=== PATIENT | female | born 1980 | race Caucasian/White ===

== ENCOUNTER 2016-05-15 11:28 | Emergency (ER) | payer OTHER ==
[~2016-05-15] VITALS: Ht 165.1 cm; Wt 65.8 kg
[2016-05-15] MEDS ORDERED: DULO30CA48 (11:55)
--- NOTE | 2016-05-15 12:36 | Diagnostic Imaging Report ---
PA and lateral views of the chest Indication: Left chest pain Findings: The lungs are clear. The heart size is normal. There is no effusion or pneumothorax The mediastinum and esau appear unremarkable. Impression: Unremarkable study. Dictated by: Dictated on workstation # [id number]
--- NOTE | 2016-05-15 12:55 | ED Chest Pain ---
General Chief Complaint: Chest Wall/Rib Pain Stated Complaint: LEFT RIB/CHEST PAIN Nursing Triage Note: PT CO OF L RIB PAIN SUDDEN ONSET Nursing Sepsis Screen: No Definite Risk History of Present Illness Time seen by provider: 12:55 Initial Comments Patient presents for acute exacerbation of left rib pain, she reports this happens on a regular basis but usually only last a few minutes. She has had 2 previous cervical spine surgeries, has recurrent numbness and tingling in bilateral upper extremities left > right. 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 Timing/Duration: 1-3 hours Severity/Quality: moderate Location: other (Left axilla to flank) Radiation: no radiation Activities at Onset: other (work) Prior CP/Workup: no prior chest pain Modifying Factors: improves with rest, improves with other (adjustments) ASA po RENT AND HOUSING INVESTIGATOR: No NTG SL RENT AND HOUSING INVESTIGATOR: No Associated Symptoms: denies symptoms Allergies and Home Medications Allergies Coded Allergies: No Allergy Information Available (Unverified , 12/02/13) no known allergy Home Medications Duloxetine HCl 30 Mg Capsule. #30 (Reported) Metaxalone 800 Mg Tablet #12 800 MG PO Q8H Prescribed by: NOMI YORK on 05/15/16 1355 Tramadol HCl 50 Mg Tablet #12 50 MG PO Q8H Prescribed by: NOMI YORK on 05/15/16 1355 Review of Systems Constitutional: no symptoms reported see HPI EENTM: No Symptoms Reported See HPI Respiratory: No Symptoms Reported See HPIDenies Cough, Denies SOA With Exertion Cardiovascular: No Symptoms Reported See HPI Gastrointestinal: No Symptoms Reported See HPI Genitourinary: No Symptoms Reported See HPI Musculoskeletal: see HPI muscle pain muscle cramps other (left rib pain) Skin: no symptoms reported see HPI Psychiatric/Neurological: No Symptoms Reported See HPI Endocrine: No Symptoms Reported See HPI Hematologic/Lymphatic: No Symptoms Reported See HPI Past Hgiucro-Hkkmze-Qsyipg Hx Patient Social History Alcohol Use: Denies Use Recreational Drug Use: No Smoking Status: Never a Smoker Recent Foreign Travel: No Contact w/Someone Who Travel: No Recent Infectious Disease Expo: No Recent Hopitalizations: No Physical Abuse Screen: No Sexual Abuse: No Immunizations Up To Date Date of Influenza Vaccine: Jan 26, 2016 Reviewed Nursing Assessment Reviewed/Agree w Nursing PMH: Yes Physical Exam Vital Signs Vital Sign - Last 12Hours 05/15/16 11:35 Temp 98.1 Pulse 123 Resp 20 B/P 130/85 Pulse Ox 100 Capillary Refill : Less Than 3 Seconds General Appearance: WD/WN Mild Distress (patient splinting left wrist with warm blanket, pain 8 out of 10) HEENT: PERRL/EOMI TMs Normal Pharynx Normal Neck: Normal Inspection Non Tender Supple Limited Range of Motion (secondary to cervical spinal fusion) Respiratory: Lungs Clear Normal Breath Sounds No Accessory Muscle Use No Respiratory Distress Other (pain left ribs with deep breathing) Cardiovascular: Regular Rate, Rhythm No Murmur Gastrointestinal: Normal Bowel Sounds Non Tender Soft Extremity: Normal Capillary Refill Normal Inspection Normal Range of Motion Non Tender No Calf Tenderness No Pedal Edema Neurologic/Psychiatric: Alert Oriented x3 No Motor/Sensory Deficits Normal Mood/Affect Skin: Normal Color Warm/Dry Lymphatic: No Adenopathy Other comments Exquisite tenderness to palpation left fifth through eighth ribs, no skin changes. Full range of motion to bilateral shoulders. Neurovascular status intact bilateral upper extremities. Power V/V C5-T1. Normal sensation to light touch bilateral upper extremities Progress/Results/Core Measures Results/Orders Lab Results Laboratory Tests Test 05/15/16 12:07 Range/Units Urine Bacteria FEW H /HPF Urine Bilirubin NEGATIVE NEGATIVE Urine Casts NONE /LPF Urine Clarity CLEAR Urine Color YELLOW Urine Crystals NONE /LPF Urine Culture Indicated NO Urine Glucose (UA) NEGATIVE NEGATIVE Urine Ketones NEGATIVE NEGATIVE Urine Leukocyte Esterase 1+ H NEGATIVE Urine Mucus NEGATIVE /LPF Urine Nitrite NEGATIVE NEGATIVE Urine Protein NEGATIVE NEGATIVE Urine RBC NONE /HPF Urine RBC (Auto) NEGATIVE NEGATIVE Urine Specific [place] 1.010 L 1.016-1.022 Urine Squamous Epithelial Cells 2-5 /HPF Urine Urobilinogen NORMAL NORMAL MG/DL Urine WBC RARE /HPF Urine pH 8 5-9 My Orders Orders-NOMI YORK Ketorolac Injection (Toradol Injection) (05/15/16 13:03) Orphenadrine Injection (Norflex Injectio (05/15/16 13:03) Ua Culture If Indicated (05/15/16 13:32) Vital Signs/I&O Vital Sign - Last 12Hours 05/15/16 05/15/16 11:35 14:06 Temp 98.1 Pulse 123 88 Resp 20 20 B/P 130/85 Pulse Ox 100 100 Blood Pressure Mean: 100 Progress Note : Time: 14:30 Progress Note Patient reports pain now to be a 4/10, feels she can manage at home. ECG EKG : EKG Time: 11:36 Rate: 105 Rhythm: S.Tach Intervals: Normal, VT (144), QRS (76), QT ECG Comparisson: No Previous ECG Available Comment Reviewed with Dr. Iraheta, agreed with interpretation. [place]: P -19; QRS 75; T 49 Diagnostic Imaging Diagonstic Imaging: Xray Plain Films/CT/US/NM/MRI: chest Comments NAME: HAKEEM WONG [facility] REC#: [id number] PT STATUS: REG ER : 1980 PHYSICIAN: ALICIA IRAHETA MD ADMIT DATE: 05/15/16/ER Signed Date of Exam: 05/15/16 CHEST PA/LAT (2 VIEW) PA and lateral views of the chest Indication: Left chest pain Findings: The lungs are clear. The heart size is normal. There is no effusion or pneumothorax The mediastinum and esau appear unremarkable. Impression: Unremarkable study. Dictated by: Dictated on workstation # [id number] Dict: 05/15/16 1228 Trans: 05/15/16 1234 [facility] [id number] Interpreted by: BUBBA MÁRQUEZ MD Electronically signed by:BUBBA MÁRQUEZ MD 05/15/16 1236 Departure Impression Impression: Primary Impression: Rib pain Disposition: 01 HOME, SELF-CARE Condition: Improved Departure-Patient Inst. Referrals: DIANA MONTENEGRO MD (PCP/Family) Primary Care Physician Patient Instructions: Costochondritis (DC) Scripts Metaxalone (Skelaxin)800 Mg [id number] Mg PO Q8H Spasms #12 TAB Ref 0 Prov:NOMI YORK 05/15/16 Tramadol HCl 50 Mg [id number] Mg PO Q8H Pain #12 TAB Ref 0 Prov:NOMI YORK 05/15/16 Copy Copies To 1: DIANA MONTENEGRO MD, AMY ARNP May 15, 2016 12:55
[2016-05-15] MEDS ORDERED: ORPHENADRINE 60 MG/2 ML (NORFLEX) AMP IM STA (13:03)
[2016-05-15] MEDS ORDERED: KETOROLAC 60 MG/2 ML VIAL IM STA (13:03)
[2016-05-15 13:55] LABS: BILIRUBIN,URINE NEGATIVE (NEGATIVE); KETONES,URINE NEGATIVE (NEGATIVE); LEUKOCYTE ESTERASE ,URINE 1+ (NEGATIVE); NITRITE,URINE NEGATIVE (NEGATIVE); PH,URINE 8 (5-9); PROTEIN,URINE NEGATIVE (NEGATIVE); UROBILINOGEN,URINE NORMAL (NORMAL); WBC,URINE RARE /HPF
[2016-05-15] MEDS ORDERED: NF-SKEL800 PO (13:55)
[2016-05-15] MEDS ORDERED: TRAM50TA2 PO (13:55)
[2016-05-15 14:06] VITALS: BP 122/64
== END 2016-05-15 14:06 | disposition home or self-care (01) ==
LOC: EDUNIT# 11:28 → ER 11:30
DX: R07.81 Pleurodynia (principal); R20.2 Paresthesia of skin
CPT/HCPCS: 71020; 81000; 93005; 96372

== ENCOUNTER → 2016-07-03 | Outpatient (CLI) | payer OTHER ==
[~2016-07-03] MED LIST: DULO30CA48; NF-SKEL800 PO; TRAM50TA2 PO
--- OUTSIDE RECORDS SUMMARY | 2016-07-03 09:07 | XMS REPORT | Continuity of Care Document ---
Author Author [facility] Organization [facility] [address] Address Unknown Phone Unavailable Allergies Active Description Code Type Severity Reaction Onset Reported/Identified Relationship to Patient Clinical Status Yes No Allergy Information Available [id number] Drug Allergy Unknown N/A 12/02/2013 Medications Problems Date Dx Coded Attending Type Code Diagnosis Diagnosed By 12/02/2013 MONI VALLE, DIANA A Ot 723.1 CERVICALGIA 12/02/2013 MONI VALLE, DIANA Daley Ot V57.1 PHYSICAL THERAPY NEC 09/14/2014 MONI VALLE, DIANA A Ot 780.4 09/14/2014 MONI VALLE, DIANA A Ot 782.0 09/14/2014 MONI VALLE, DIANA A Ot 784.0 09/14/2014 MONI VALLE, DIANA A Ot V72.62 09/19/2014 Ot 625.9 09/19/2014 Ot 789.00 09/19/2014 Ot 626.4 09/19/2014 Ot 789.00 09/19/2014 MONI VALLE, DIANA A Ot 723.0 09/19/2014 MONI VALLE, DIANA A Ot 723.1 09/19/2014 MONI VALLE, DIANA A Ot 784.0 09/19/2014 MONI VALLE, DIANA A Ot 626.8 09/19/2014 MONI VALLE, DIANA A Ot 724.00 09/19/2014 MONI VALLE, DIANA A Ot 784.0 09/19/2014 SADIE VALLE, KHARIYLON A Ot V72.84 09/19/2014 MONI VALLE, DIANA A Ot 611.71 09/19/2014 MERRILL MCDONALD MILL CONTROL OPERATOR Ot 719.40 09/19/2014 MERRILL MCDONALD MILL CONTROL OPERATOR Ot 724.1 09/19/2014 MERRILL MCDONALD M[employer] CONTROL OPERATOR Ot 782.3 09/19/2014 MONI VALLE, DIANA A Ot 793.80 09/19/2014 MONI VALLE, DIANA A Ot 719.47 09/19/2014 MONI VALLE, DIANA A Ot 729.81 09/19/2014 MONI VALLE, DIANA A Ot 478.19 09/19/2014 MONI VALLE, DIANA A Ot 729.81 09/19/2014 MONI VALLE, DIANA A Ot 780.79 09/19/2014 KAMARA DO, ALAN C Ot 625.3 09/19/2014 KAMARA DO, ALAN C Ot 625.9 09/19/2014 KAMARA DO, ALAN C Ot 626.2 09/19/2014 KAMARA DO, ALAN C Ot 788.1 09/19/2014 KAMARA DO, ALAN C Ot V13.02 09/19/2014 MONI VALLE, DIANA A Ot 722.4 09/19/2014 MONI VALLE, DIANA A Ot 722.51 09/19/2014 MONI VALLE, DIANA A Ot 722.52 09/19/2014 MONI VALLE, DIANA A Ot 780.4 09/19/2014 MONI VALLE, DIANA A Ot 782.0 09/19/2014 MONI VALLE, DIANA A Ot 784.0 09/19/2014 MONI VALLE, DIANA A Ot V72.62 09/20/2014 MONI VALLE, DIANA A Ot 721.2 09/20/2014 MONI VALLE, DIANA A Ot 723.0 09/20/2014 MONI VALLE, DIANA A Ot V45.4 10/05/2014 MONI VALLE, DIANA A Ot 780.4 10/05/2014 MONI VALLE, DIANA A Ot 782.0 10/05/2014 MONI VALLE, DIANA A Ot 784.0 10/05/2014 MONI VALLE, DIANA A Ot V72.62 10/13/2014 YESI VALLE, ALTON Milton Ot 473.9 10/19/2014 MONI VALLE, DIANA A Ot 721.2 10/19/2014 MONI VALLE, DIANA A Ot 723.0 10/19/2014 MONI VALLE, DIANA A Ot V45.4 10/19/2014 MONI VALLE, DIANA A Ot 723.1 10/19/2014 MONI VALLE, DIANA A Ot 724.1 10/31/2014 Ot 625.9 10/31/2014 Ot 789.00 10/31/2014 Ot 626.4 10/31/2014 Ot 789.00 10/31/2014 MONI VALLE, DIANA A Ot 723.0 10/31/2014 MONI VALLE, DIANA A Ot 723.1 10/31/2014 MONI VALLE, DIANA A Ot 784.0 10/31/2014 MONI VALLE, DIANA A Ot 626.8 10/31/2014 MONI VALLE, DIANA A Ot 724.00 10/31/2014 MONI VALLE, DIANA A Ot 784.0 10/31/2014 SADIE VALLE, [facility] A Ot V72.84 10/31/2014 MONI VALLE, DIANA A Ot 611.71 10/31/2014 [employer] CONTROL OPERATOR Ot 719.40 10/31/2014 MERRILL MCDON[employer]D M[employer] CONTROL OPERATOR Ot 724.1 10/31/2014 MERRILL MCDON[employer]D M[employer] CONTROL OPERATOR Ot 782.3 10/31/2014 MONI VALLE, DIANA A Ot 793.80 10/31/2014 MONI VALLE, DIANA A Ot 719.47 10/31/2014 MONI VALLE, DIANA A Ot 729.81 10/31/2014 MONI VALLE, DIANA A Ot 478.19 10/31/2014 MONI VALLE, DIANA A Ot 729.81 10/31/2014 MONI VALLE, DIANA A Ot 780.79 10/31/2014 KAMARA DO, ALAN C Ot 625.3 10/31/2014 KAMARA DO, ALAN C Ot 625.9 10/31/2014 KAMARA DO, ALAN C Ot 626.2 10/31/2014 KAMARA DO, ALAN C Ot 788.1 10/31/2014 KAMARA DO, ALAN C Ot V13.02 10/31/2014 MONI VALLE, DIANA A Ot 722.4 10/31/2014 MONI VALLE, DIANA A Ot 722.51 10/31/2014 MONI VALLE, DIANA A Ot 722.52 10/31/2014 MONI VALLE, DIANA A Ot 780.4 10/31/2014 MONI VALLE, DIANA A Ot 782.0 10/31/2014 MONI VALLE, DIANA A Ot 784.0 10/31/2014 MONI VALLE, DIANA A Ot V72.62 10/31/2014 MONI VALLE, DIANA A Ot 721.2 10/31/2014 MONI VALLE, DIANA A Ot 723.0 10/31/2014 MONI VALLE, DIANA A Ot V45.4 10/31/2014 MONI VALLE, DIANA A Ot 723.1 10/31/2014 MONI VALLE, DIANA A Ot 724.1 10/31/2014 YESI VALLE, ALTON P Ot 473.9 11/03/2014 YESI VALLE, ALTON P Ot 473.9 11/20/2014 SADIE VALLE, KHARIYLON A Ot 719.49 11/20/2014 LIBERTY MARSH ORTHO RN Ot 530.81 11/20/2014 LIBERTY MARSH ORTHO RN Ot 787.3 11/27/2014 MAXIMO, LIBERTY J ORTHO RN Ot 530.81 11/27/2014 LIBERTY MARSH ORTHO RN Ot 787.3 02/13/2016 Ot 625.9 FEM GENITAL SYMPTOMS NOS 02/13/2016 Ot 789.00 ABDOMINAL PAIN, UNSPECIFIED SITE 02/13/2016 Ot 626.4 IRREGULAR MENSTRUATION 02/13/2016 Ot 789.00 ABDOMINAL PAIN, UNSPECIFIED SITE 02/13/2016 MONI VALLE, DIANA Daley Ot 723.0 CERVICAL SPINAL STENOSIS 02/13/2016 MONI VALLE, DIANA Daley Ot 723.1 CERVICALGIA 02/13/2016 DIANA MONTENEGRO MD Ot 784.0 HEADACHE 02/13/2016 DIANA MONTENEGRO MD Ot 626.8 MENSTRUAL DISORDER NEC 02/13/2016 DIANA MONTENEGRO MD Ot 724.00 SPINAL STENOSIS NOS 02/13/2016 DIANA MONTENEGRO MD Ot 784.0 HEADACHE 02/13/2016 SADIE VALLE, DORIS A Ot V72.84 EXAM PRE-OPERATIVE NOS 02/13/2016 MONI VALLE, DIANA Daley Ot 611.71 MASTODYNIA 02/13/2016 MERRILL MCDON[employer]D M[employer] CONTROL OPERATOR Ot 719.40 JOINT PAIN-UNSPEC 02/13/2016 MERRILL MCDONALD MILL CONTROL OPERATOR Ot 724.1 PAIN IN THORACIC SPINE 02/13/2016 MERRILL MCDONALD MILL CONTROL OPERATOR Ot 782.3 EDEMA 02/13/2016 DIANA MONTENEGRO MD Ot 793.80 UNSPEC ABNORMAL MAMMOGRAM 02/13/2016 DIANA MONTENEGRO MD Ot 719.47 JOINT PAIN-ANKLE 02/13/2016 DIANA MONTENEGRO MD Ot 729.81 SWELLING OF LIMB 02/13/2016 DIANA MONTENEGRO MD Ot 478.19 OTHER DISEASE OF NASAL CAVITY AND SINUSE 02/13/2016 DIANA MONTENEGRO MD Ot 729.81 SWELLING OF LIMB 02/13/2016 DIANA MONTENEGRO MD Ot 780.79 OTH MALAISE FATIGUE 02/13/2016 KAMARA DOPUSHPAA C Ot 625.3 DYSMENORRHEA 02/13/2016 ASAD SAVAGE ALAN C Ot 625.9 FEM GENITAL SYMPTOMS NOS 02/13/2016 ASAD SAVAGE ALAN C Ot 626.2 EXCESSIVE MENSTRUATION 02/13/2016 ASAD SAVAGE ALAN C Ot 788.1 DYSURIA 02/13/2016 ASAD SAVAGE ALAN C Ot V13.02 PERSONAL HISTORY, URINARY (TRACT) INFECT 02/13/2016 DIANA MONTENEGRO MD Ot 722.4 CERVICAL DISC DEGEN 02/13/2016 DIANA MONTENEGRO MD Ot 722.51 THORACIC DISC DEGEN 02/13/2016 DIANA MONTENEGRO MD Ot 722.52 LUMB/LUMBOSAC DISC DEGEN 02/13/2016 DIANA MONTENEGRO MD Ot 780.4 DIZZINESS AND GIDDINESS 02/13/2016 DIANA MONTENEGRO MD Ot 782.0 SKIN SENSATION DISTURB 02/13/2016 DIANA MONTENEGRO MD Ot 784.0 HEADACHE 02/13/2016 DIANA MONTENEGRO MD Ot V72.62 LAB EXAM ORDERED PART OF A ROUTINE GE 02/13/2016 DIANA MONTENEGRO MD Ot 721.2 THORACIC SPONDYLOSIS 02/13/2016 DIANA MONTENEGRO MD Ot 723.0 CERVICAL SPINAL STENOSIS 02/13/2016 DIANA MONTENEGRO MD Ot V45.4 ARTHRODESIS STATUS 02/13/2016 DIANA MONTENEGRO MD Ot 723.1 CERVICALGIA 02/13/2016 DIANA OMNTENEGRO MD Ot 724.1 PAIN IN THORACIC SPINE 02/13/2016 YESI VALLE, ALTON Milton Ot 473.9 CHRONIC SINUSITIS NOS 02/13/2016 SADIE VALLE, KHARIYLON A Ot 719.49 JOINT PAIN-MULT JTS 02/13/2016 LIBERTY MARSH ORTHO RN Ot 530.81 ESOPHAGEAL REFLUX 02/13/2016 LIBERTY MARSH ORTHO RN Ot 787.3 FLATUL/ERUCTAT/GAS PAIN 02/19/2016 Ot 625.9 FEM GENITAL SYMPTOMS NOS 02/19/2016 Ot 789.00 ABDOMINAL PAIN, UNSPECIFIED SITE 02/19/2016 Ot 626.4 IRREGULAR MENSTRUATION 02/19/2016 Ot 789.00 ABDOMINAL PAIN, UNSPECIFIED SITE 02/19/2016 DIANA MONTENEGRO MD Ot 723.0 CERVICAL SPINAL STENOSIS 02/19/2016 DIANA MONTENEGRO MD Ot 723.1 CERVICALGIA 02/19/2016 DIANA MONTENEGRO MD Ot 784.0 HEADACHE 02/19/2016 DIANA MONTENEGRO MD Ot 626.8 MENSTRUAL DISORDER NEC 02/19/2016 DIANA MONTENEGRO MD Ot 724.00 SPINAL STENOSIS NOS 02/19/2016 DIANA MONTENEGRO MD Ot 784.0 HEADACHE 02/19/2016 SADIE VALLE, KHARIYLON A Ot V72.84 EXAM PRE-OPERATIVE NOS 02/19/2016 DIANA MONTENEGRO MD Ot 611.71 MASTODYNIA 02/19/2016 MERRILL MCDONALD MILL CONTROL OPERATOR Ot 719.40 JOINT PAIN-UNSPEC 02/19/2016 MERRILL MCDONALD MILL CONTROL OPERATOR Ot 724.1 PAIN IN THORACIC SPINE 02/19/2016 MERRILL MCDONALD MILL CONTROL OPERATOR Ot 782.3 EDEMA 02/19/2016 DIANA MONTENEGRO MD Ot 793.80 UNSPEC ABNORMAL MAMMOGRAM 02/19/2016 DIANA MONTENEGRO MD Ot 719.47 JOINT PAIN-ANKLE 02/19/2016 DIANA MONTENEGRO MD Ot 729.81 SWELLING OF LIMB 02/19/2016 DIANA MONTENEGRO MD Ot 478.19 OTHER DISEASE OF NASAL CAVITY AND SINUSE 02/19/2016 DIANA MONTENEGRO MD Ot 729.81 SWELLING OF LIMB 02/19/2016 DIANA MONTENEGRO MD Ot 780.79 OTH MALAISE FATIGUE 02/19/2016 ALAN KAMARA DO Ot 625.3 DYSMENORRHEA 02/19/2016 ALAN KAMARA DO Ot 625.9 FEM GENITAL SYMPTOMS NOS 02/19/2016 ALAN KAMARA DO Ot 626.2 EXCESSIVE MENSTRUATION 02/19/2016 ALAN KAMARA DO Ot 788.1 DYSURIA 02/19/2016 ALAN KAMARA DO Ot V13.02 PERSONAL HISTORY, URINARY (TRACT) INFECT 02/19/2016 DIANA MONTENEGRO MD Ot 722.4 CERVICAL DISC DEGEN 02/19/2016 DIANA MONTENEGRO MD Ot 722.51 THORACIC DISC DEGEN 02/19/2016 DIANA MONTENEGRO MD Ot 722.52 LUMB/LUMBOSAC DISC DEGEN 02/19/2016 DIANA MONTENEGRO MD Ot 780.4 DIZZINESS AND GIDDINESS 02/19/2016 DIANA MONTENEGRO MD Ot 782.0 SKIN SENSATION DISTURB 02/19/2016 DIANA MONTENEGRO MD Ot 784.0 HEADACHE 02/19/2016 DIANA MONTENEGRO MD Ot V72.62 LAB EXAM ORDERED PART OF A ROUTINE GE 02/19/2016 DIANA MONTENEGRO MD Ot 721.2 THORACIC SPONDYLOSIS 02/19/2016 DIANA MONTENEGRO MD Ot 723.0 CERVICAL SPINAL STENOSIS 02/19/2016 DIANA MONTENEGRO MD Ot V45.4 ARTHRODESIS STATUS 02/19/2016 DIANA MONTENEGRO MD Ot 723.1 CERVICALGIA 02/19/2016 DIANA MONTENEGRO MD Ot 724.1 PAIN IN THORACIC SPINE 02/19/2016 YESI VALLE, ALTON Milton Ot 473.9 CHRONIC SINUSITIS NOS 02/19/2016 SADIE VALLE, DORIS Daley Ot 719.49 JOINT PAIN-MULT JTS 02/19/2016 LIBERTY MARSH Ot 530.81 ESOPHAGEAL REFLUX 02/19/2016 LIBERTY MARSH Ot 787.3 FLATUL/ERUCTAT/GAS PAIN 05/15/2016 NOMI YORK Ot R07.81 PLEURODYNIA 05/15/2016 NOMI YORK Ot R20.2 PARESTHESIA OF SKIN 05/16/2016 NOMI YORK Ot R07.81 PLEURODYNIA 05/16/2016 NOMI YORK Ot R20.2 PARESTHESIA OF SKIN 05/23/2016 NOMI YORK Ot R07.81 PLEURODYNIA 05/23/2016 NOMI YORK Ot R20.2 PARESTHESIA OF SKIN Procedures Results Test Result Range Complete urinalysis with reflex to culture - 05/15/16 12:07 Urine color determination YELLOW NRG Urine clarity determination CLEAR NRG Urine pH measurement by test strip 8 5- 9 Specific gravity of urine by test strip 1.010 1.016-1.022 Urine protein assay by test strip, semi-quantitative NEGATIVE NEGATIVE Urine glucose detection by automated test strip NEGATIVE NEGATIVE Erythrocytes detection in urine sediment by light microscopy NEGATIVE NEGATIVE Urine ketones detection by automated test strip NEGATIVE NEGATIVE Urine nitrite detection by test strip NEGATIVE NEGATIVE Urine total bilirubin detection by test strip NEGATIVE NEGATIVE Urine urobilinogen measurement by automated test strip (mass/volume) NORMAL NORMAL Urine leukocyte esterase detection by dipstick 1+ NEGATIVE Automated urine sediment erythrocyte count by microscopy (number/high power field) NONE NRG Automated urine sediment leukocyte count by microscopy (number/high power field ) RARE NRG Bacteria detection in urine sediment by light microscopy FEW NRG Squamous epithelial cells detection in urine sediment by light microscopy 2-5 NRG Crystals detection in urine sediment by light microscopy NONE NRG Casts detection in urine sediment by light microscopy NONE NRG Mucus detection in urine sediment by light microscopy NEGATIVE NRG Complete urinalysis with reflex to culture NO NRG Encounters ACCT No. Visit Date/Time Discharge Status Pt. Type Provider Facility Loc./Unit Complaint [id number] 05/15/2016 11:30:00 2016 14:06:00 DIS Emergency NOMI YORK [facility] [address] ER LEFT RIB/CHEST PAIN [id number] 10/31/2014 15:49:00 2014 23:59:59 CLS Outpatient LIBERTY MARSH [facility] [address] LAB BLOATING,REFLUX [id number] 10/31/2014 15:45:00 2014 23:59:59 CLS Outpatient SADIE VALLE, DORIS Daley [facility] [address] LAB PAIN IN JOINT [id number] 10/12/2014 12:02:00 2014 23:59:59 CLS Outpatient ALTON KEY MD [facility] [address] RAD CHRONIC SINUSITIS [id number] 09/21/2014 14:40:00 2014 23:59:59 CLS Outpatient DIANA MONTENEGRO MD [facility] [address] LAB CERVICAL/THORACIC SPINE PAIN [id number] 09/19/2014 14:34:00 2014 23:59:59 CLS Outpatient DIANA MONTENEGRO MD [facility] [address] RAD CERVICAL STENOSIS, BACK PAIN [id number] 09/11/2014 09:13:00 2014 23:59:59 CLS Outpatient DIANA MONTENEGRO MD [facility] [address] LAB DIZZINESS,NUMBNESS [id number] 12/02/2013 12:50:00 2013 23:59:59 CLS Outpatient DIANA MONTENEGRO MD [facility] [address] RAD NECK PAIN THORACIC PAIN LUMBAR PAIN CERVICAL STENO [id number] 11/24/2013 09:00:00 2013 16:00:00 [facility] Outpatient DIANA MONTENEGRO MD [facility] [address] REHAB NECK AND BACK PAIN [id number] 11/11/2013 10:04:00 2013 23:59:59 CLS Outpatient ALAN KAMARA DO [facility] RAD PELVIC PAIN [id number] 09/27/2013 11:42:00 2013 23:59:59 CLS Outpatient DIANA MONTENEGRO MD [facility] RAD ABNORMAL MAMMO 6 MONTH FOLLOW UP [id number] 09/21/2013 07:43:00 2013 23:59:59 CLS Outpatient DIANA MONTENEGRO MD [facility] [address] LAB SWELLING OF HANDS, [id number] 09/08/2013 07:35:00 2013 23:59:59 CLS Outpatient DIANA MONTENEGRO MD [facility] [address] LAB HAND SWELLING,ANKLE PAIN [id number] 08/24/2013 07:41:00 2013 23:59:59 CLS Outpatient MERRILL MCDONALD [facility] LAB JOINT PAIN,EDEMA,THORASIC BACK PAIN [id number] 06/16/2013 10:01:00 2013 23:59:59 CLS Outpatient [id number] 03/10/2013 11:35:00 2012 23:59:59 CLS Outpatient DIANA MONTENEGRO MD [facility] RAD SCREENING [id number] 12/07/2012 13:31:00 2012 23:59:59 CLS Outpatient DORIS NOEL MD [facility] [address] LAB PRE OP C5,C6 CERVICAL SPINE OUSMANE [id number] 11/19/2012 12:43:00 2012 23:59:59 CLS Outpatient DIANA MONTENEGRO MD [facility] RAD HEADACHES,NECK PAIN,SPINAL STENOSIS [id number] 11/18/2012 07:46:00 2012 23:59:59 CLS Outpatient DIANA MONTENEGRO MD [facility] LAB HEADACHES,NECK PAIN,SPINAL STENOSIS [id number] 11/15/2012 10:08:00 2012 23:59:59 CLS Outpatient [id number] 03/04/2012 11:41:00 Document Registration [id number] 03/03/2012 15:38:00 Document Registration
--- NOTE | 2016-07-03 21:26 | Diagnostic Imaging Report ---
INDICATION: Right breast lump. EXAMINATION: Ultrasound of the right breast. FINDINGS: Reportedly, the patient has a palpable abnormality in the right axilla. On this exam, there are two enlarged lymph nodes in this region. These nodes measure 2.6 x 1.7 x 2.6 cm and 1.0 x 1.1 x 3.2 cm. The normal fatty hilum of the lymph nodes is not identified and I suspect that these nodes are involved by a replacement process. This appearance is most likely secondary to an inflammatory/infectious condition as opposed to neoplasm. However, if the patient's nodes do not decrease in size after a short-term (10-14 days) of antibiotic therapy, then repeat ultrasound exam in 4 weeks would be recommended. IMPRESSION: 1. There are two enlarged lymph nodes in the right axilla. These are most likely involved by an inflammatory/infectious process. Neoplasm would be a remote consideration but still possible. Recommendations as above. 2. These results were discussed with Dr. Alvarado. ACR BI-RADS Category 3: Probably benign findings. Result letter will be mailed to the patient. Note: At least 10% of breast cancer is not imaged by mammography. Dictated by: Dictated on workstation # [id number]
--- NOTE | 2016-07-03 21:43 | Diagnostic Imaging Report ---
INDICATION: Right axillary mass. At this time the patient does complain of a mass in the right axilla. EXAMINATION: Bilateral breast digital diagnostic mammogram with CAD. The current study was also evaluated with a Computer Aided Detection (CAD) system. COMPARISON: This study was compared to the prior exam of 09/27/13 and 03/10/13. FINDINGS: A marker was placed over the area of concern. There is no primary or secondary sign of malignancy in this area. Even so, ultrasound would be recommend for further study. The fibroglandular tissue in both breasts is heterogeneously dense. This does limit the sensitivity of this exam. Overall, there does not appear to have been any significant change when compare to the previous studies. There is no primary or secondary sign of malignancy noted. IMPRESSION: 1. There is no evidence for malignancy. 2. Ultrasound of the right axilla would be recommend for further study. ACR BI-RADS Category 0: Incomplete. (Needs additional imaging evaluation). Result letter will be mailed to the patient. Note: At least 10% of breast cancer is not imaged by mammography. Dictated by: Dictated on workstation # [id number]
== END ==
LOC: RAD 09:02
PROVIDERS: ATTEND Family Medicine
DX: N64.4 Mastodynia (principal)
CPT/HCPCS: 77066

== ENCOUNTER → 2016-07-23 | Outpatient (CLI) | payer OTHER ==
[~2016-07-23] VITALS: Ht 165.1 cm; Wt 65.8 kg
[~2016-07-23] MED LIST changes: +LIDOCAINE 1% INJ 20 ML (XYLOCAINE) VIAL INJ ONE; +LIDOCAINE 1% INJ 20 ML (XYLOCAINE) VIAL ONE
[2016-07-23 14:40] VITALS: BP 124/74
--- NOTE | 2016-07-23 16:47 | Diagnostic Imaging Report ---
EXAMINATION: US-guided core biopsy-axilla. INDICATION: Right axillary lymphadenopathy. Current history and physical and other medical records are reviewed prior to the procedure. CONSENT: Informed consent was obtained from the patient. The risks, benefits, potential complications and alternatives were reviewed and all questions answered to the patient's satisfaction. The patient's vital signs, cardiac rhythm, and pulse oximetry with observed throughout the procedure by qualified nursing personnel. Sedation/medications: none. FINDINGS: Enlarged right axillary lymph node. PROCEDURE: After maximal sterile barrier technique preparation and draping, 1% lidocaine was utilized for local anesthesia. With the patient in supine position, and via anterior approach, a 17-gauge guide needle is introduced into the right axillary enlarged lymph node under live ultrasound guidance. After confirming adequate positioning with saved ultrasound images, multiple 18 gauge core biopsy specimens were obtained. The patient tolerated the procedure well with no immediate complications. IMPRESSION: Successful US-guided core biopsy of enlarged right axillary lymph node. Dictated by: Dictated on workstation # [id number]
--- NOTE | 2016-07-24 19:37 | Diagnostic Imaging Report ---
EXAMINATION: Ultrasound of the right axilla. INDICATION: There is persistent lymphadenopathy in the right axilla with the largest measuring 2.8 x 1.7 x 2.1 cm. A smaller one adjacent to it is 1.4 x 0.9 x 2.8 cm. These demonstrate thickening of the cortex and effacement of the fatty hilum concerning for pathologic enlargement. IMPRESSION: Mildly enlarged lymph nodes in the right axilla. Etiology is indeterminate. Dictated by: Dictated on workstation # [id number]
== END ==
LOC: RAD 13:47
PROVIDERS: ATTEND Nurse Practitioner Family
DX: R59.0 Localized enlarged lymph nodes (principal)
CPT/HCPCS: 76942; 88184; 88185; 88305; 88312; 88341; 88342

== ENCOUNTER 2017-10-07 13:48 | Outpatient (RCR) | payer OTHER ==
[~2017-10-07 13:48] MED LIST changes: -LIDOCAINE 1% INJ 20 ML (XYLOCAINE) VIAL INJ ONE; -LIDOCAINE 1% INJ 20 ML (XYLOCAINE) VIAL ONE
== END 2017-11-18 | disposition home or self-care (01) ==
PROVIDERS: ATTEND Family Medicine
DX: M54.2 Cervicalgia (principal); M54.6 Pain in thoracic spine; R25.2 Cramp and spasm; Z98.1 Arthrodesis status

== ENCOUNTER → 2018-02-05 | Outpatient (CLI) | payer OTHER ==
--- NOTE | 2018-02-05 13:48 | Diagnostic Imaging Report ---
INDICATION: Intermittent right flank pain for a few weeks. TECHNIQUE: Single supine view of the abdomen 12:17 p.m. CORRELATION STUDY: None. FINDINGS: Imaging of the abdomen demonstrates the bowel gas pattern to be unremarkable and without evidence for obstruction. No significant differential air-fluid levels. No evidence for gross free air on single supine imaging. Mild severity fecal retention. No pathologic intra-abdominal calcifications. Likely phleboliths within the pelvis. Densities in the right lower quadrant could be owing to prior appendectomy along with presumed cholecystectomy clips in the right upper quadrant. IMPRESSION: 1. Nonobstructed appearing bowel gas pattern. Mild severity fecal retention. Dictated by: Dictated on workstation # [id number]
== END ==
LOC: RAD 11:41
PROVIDERS: ATTEND Nurse Practitioner Family
DX: K59.00 Constipation, unspecified (principal)
CPT/HCPCS: 74018

== ENCOUNTER → 2018-10-05 | Outpatient (CLI) | payer OTHER ==
[2018-10-05 16:04] LABS: FREE T4 (FREE THYROXINE) 0.92 NG/DL (0.70-1.48)
== END ==
LOC: LAB 15:00
PROVIDERS: ATTEND Family Medicine
DX: R23.2 Flushing (principal); R53.83 Other fatigue; R63.5 Abnormal weight gain
CPT/HCPCS: 36415; 82672; 84144; 84439; 84443

== ENCOUNTER → 2019-02-25 | Outpatient (CLI) | payer OTHER ==
[~2019-02-25] MED LIST changes: -DULO30CA48; +DULO30CA49; -TRAM50TA2 PO; +TRM50T PO
--- NOTE | 2019-02-25 09:55 | Diagnostic Imaging Report ---
INDICATION: Routine screening. Comparison is made with prior mammogram from 07/03/2016 and 09/27/2013. 2-D and 3-D bilateral screening mammography was performed with CAD. The current study was also evaluated with a Computer Aided Detection (CAD) system. 3-D tomosynthesis was also performed and reviewed. Both breasts are heterogeneously dense, limiting the sensitivity of mammography. No mass or malignant appearing microcalcifications are seen. The axillae are unremarkable. IMPRESSION: No mammographic features suspicious for malignancy are identified. ACR BI-RADS Category 1: Negative. Result letter will be mailed to the patient. Note: At least 10% of breast cancer is not imaged by mammography. Dictated by: Dictated on workstation # [id number]
--- NOTE | 2019-02-25 13:30 | Diagnostic Imaging Report ---
PROCEDURE: US Non-ob pelvis comp/trans. TECHNIQUE: Multiple realtime grayscale images were obtained of the pelvis in various projections endovaginally. Transabdominal imaging was also performed. INDICATION: Dysmenorrhea. FINDINGS: The uterus is retroverted and measures 9.8 x 5.7 x 4.7 cm. Endometrium is 7 mm in thickness. No myometrial mass is detected. The right ovary measures 2.4 x 1.5 x 1.1 cm and the left ovary measures 4.8 x 3.3 x 3.0 cm. The left ovary does contain a 4.7 x 2.8 x 2.8 cm simple appearing cyst. There is blood flow to the ovaries. There is a small amount of free fluid adjacent to the left ovary and within the posterior cul-de-sac. IMPRESSION: 4.7 cm left ovarian cyst. No other significant abnormality is detected. Dictated by: Dictated on workstation # [id number]
== END ==
LOC: RAD 07:23
PROVIDERS: ATTEND Obstetrics & Gynecology
DX: Z12.31 Encounter for screening mammogram for malignant neoplasm of breast (principal); N83.202 Unspecified ovarian cyst, left side; N85.4 Malposition of uterus
CPT/HCPCS: 76830; 76856; 77067

== ENCOUNTER 2020-03-09 08:25 | Outpatient (RCR) | payer OTHER | END 2020-03-12 | disposition home or self-care (01) | PROVIDERS: ATTEND Nurse Practitioner Family | DX: M54.6 Pain in thoracic spine (principal); M54.2 Cervicalgia; M25.512 Pain in left shoulder ==

== ENCOUNTER 2020-05-16 10:54 | Outpatient (RCR) | payer OTHER | END 2020-06-11 | disposition home or self-care (01) | PROVIDERS: ATTEND Nurse Practitioner Family | DX: M54.6 Pain in thoracic spine (principal); M54.2 Cervicalgia; M25.512 Pain in left shoulder; Z98.1 Arthrodesis status; Z87.81 Personal history of (healed) traumatic fracture ==

== ENCOUNTER → 2020-09-27 | Outpatient (CLI) | payer OTHER ==
--- NOTE | 2020-09-27 09:24 | Diagnostic Imaging Report ---
INDICATION: Left shoulder pain. Glenohumeral and acromioclavicular alignment are normal. Acromiohumeral space is normal. No fracture or dislocation is detected. IMPRESSION: No acute abnormality is detected. Dictated by: Dictated on workstation # [id number]
--- NOTE | 2020-09-27 09:25 | Diagnostic Imaging Report ---
Indication: Neck pain. Time of exam: 8:39 AM 3 views of the cervical spine demonstrate postoperative changes of ACDF with anterior plate and screws transfixing the C4-C6 levels. There is a metallic coil identified to the right of midline at the level of C6 and the prevertebral tissues, indeterminate. There is some straightening of the normal cervical lordotic curvature. There appears to be bony bridging between C4 and C5 vertebral bodies as well as C5 and C6 vertebral bodies. No fractures are identified. Odontoid is intact. Impression: 1. Postsurgical changes, as described. No acute bony abnormality is detected. 2. Coil foreign body in the prevertebral tissues at the level of C6 to the right of midline, indeterminate. Dictated by: Dictated on workstation # [id number]
--- NOTE | 2020-09-27 09:26 | Diagnostic Imaging Report ---
INDICATION: Neck pain and back pain. Time of exam: 8:41 AM Frontal and lateral views of the thoracic spine were obtained. Curvature and alignment of the thoracic spine is normal. Vertebral body heights are maintained. There is generalized degenerative disc disease with variable disc space narrowing and marginal spurring. Pedicles and paraspinous line are intact. IMPRESSION: Thoracic spondylosis. No acute bony abnormalities detected. Dictated by: Dictated on workstation # [id number]
== END ==
LOC: RAD 08:15
PROVIDERS: ATTEND Nurse Practitioner Family
DX: M47.814 Spondylosis without myelopathy or radiculopathy, thoracic region (principal); Z18.10 Retained metal fragments, unspecified
CPT/HCPCS: 72040; 72072; 73030

== ENCOUNTER → 2020-10-18 | Outpatient (CLI) | payer OTHER ==
--- NOTE | 2020-10-18 16:34 | Diagnostic Imaging Report ---
PROCEDURE: MR imaging cervical spine without contrast. TECHNIQUE: Multiplanar, multisequence MR imaging of the cervical spine was performed without contrast. INDICATION: Neck pain. Left shoulder radiculopathy. COMPARISON: 11/19/2012. FINDINGS: No acute fracture or dislocation is seen in the cervical spine. ACDF changes are visualized from C4 to C6. There is straightening of the cervical spine. The vertebral body heights are well maintained. The bone marrow signal is unremarkable. No focal osseous lesions. The craniocervical junction is maintained. The cervical spinal cord demonstrates normal intrinsic signal. No epidural collections are seen. The included brainstem and posterior fossa have normal appearance. Multilevel degenerative changes are seen in the cervical spine with posterior disc bulges and uncovertebral arthropathy. C2-C3: No significant spinal canal or foraminal stenosis. C3-C4: Uncovertebral arthropathy and buckling of ligamentum flavum results in mild spinal canal narrowing and mild right and moderate to severe left foraminal stenosis. C4-C5: Uncovertebral arthropathy and marginal osteophytes result in mild spinal canal narrowing and no significant foraminal narrowing. C5-C6: No significant spinal canal or foraminal stenosis. C6-C7: Uncovertebral arthropathy and marginal osteophytes result in no significant spinal canal narrowing and mild right and no left foraminal narrowing. C7-T1: Uncovertebral arthropathy results in no significant spinal canal narrowing and no right and [id number] left foraminal narrowing. The soft tissues of neck are unremarkable. Impression: 1. No acute fracture or dislocation of the cervical spine. 2. Multilevel degenerative changes in the cervical spine, greatest at C3-C4 and C7-T1 with left foraminal stenosis at both of these levels. No significant spinal canal stenosis is seen in the cervical spine. 3. Postsurgical changes of ACDF from C4 to C6. Dictated by: Dictated on workstation # [id number]
--- NOTE | 2020-10-18 18:20 | Diagnostic Imaging Report ---
MRI LT UPPER EXT JOINT W/O Technique: Multiplanar, multisequence MR imaging of the left shoulder was performed without contrast. Comparison: None available. Indication: Left shoulder pain Findings: Rotator cuff: The supraspinatus, infraspinatus, teres minor and subscapularis are all intact. No rotator cuff muscle atrophy or edema. Glenoid labrum: No chondral labral separation or paralabral cyst. Long head of biceps: Long head of biceps is normally positioned within the bicipital groove. The intracapsular segment is intact. Bones and cartilage: Humeral head is normal in morphology without fracture or focal osseous lesion. No glenohumeral chondromalacia. Mild edema in the distal clavicle with degenerative capsular hypertrophy. No erosive changes are present. Soft tissues: No glenohumeral joint effusion. No MRI findings to suggest adhesive capsulitis. No fluid or inflammatory like signal within the subacromial/subdeltoid space to indicate bursitis. IMPRESSION: 1. No rotator cuff tear. 2. Long head of biceps is normal. 3. Bone marrow edema in the distal clavicle is likely reactive hyperemia associated with the degenerative changes of the AC joint. Clinical correlation for focal tenderness at the AC joint is suggested. Dictated by: Dictated on workstation # [id number]
== END ==
LOC: RAD 13:26
PROVIDERS: ATTEND Nurse Practitioner Family
DX: M50.120 Mid-cervical disc disorder, unspecified level (principal); M48.02 Spinal stenosis, cervical region
CPT/HCPCS: 72141; 73221

== ENCOUNTER → 2020-12-12 | Outpatient (CLI) | payer OTHER ==
--- NOTE | 2020-12-12 14:06 | Diagnostic Imaging Report ---
INDICATION: Cervical radiculopathy. Post fusion.. TECHNIQUE: AP, lateral, lateral flexion, and extension views of the cervical spine at 12:35 PM. CORRELATION STUDY: 09/27/2020. FINDINGS: Anterior cervical decompression and fusion with plate, screws, and intervertebral disc spacer device and graft from C4 to C6 are stable. Hardware appears intact. Fused segment alignment anatomic. Surgical clips project to the anterior right of midline over the C6 hardware, unchanged. Nonfused segments demonstrate trace anterolisthesis of C3 on C4 and C2 on C3. Mild disc space narrowing at the C3-C4 level. There is also noted fusion across the C6-C7 disc space. C7-T1 level has mild narrowing. With flexion and extension, there is limited range of motion suggested. With flexion, very slight accentuation of the anterolisthesis of C2 on C3 and C3 on C4. With extension, this reduces to a normal alignment. Prevertebral soft tissues are unremarkable. Visualized lung apices are unremarkable. IMPRESSION: Anterior cervical decompression and fusion of C4 to C6 with additional fusion across the C6-C7 disc space. Limitations in motion. There is subtle slight anterolisthesis of C2 on C3 and C3 on C4 with flexion. Dictated by: Dictated on workstation # [id number]
== END ==
LOC: RAD 12:10
PROVIDERS: ATTEND Neurological Surgery
DX: M43.12 Spondylolisthesis, cervical region (principal); M54.12 Radiculopathy, cervical region; Z98.1 Arthrodesis status
CPT/HCPCS: 72050

== ENCOUNTER 2021-04-10 13:11 | Outpatient (RCR) | payer OTHER | END 2021-04-26 | disposition home or self-care (01) | DX: M54.2 Cervicalgia (principal) ==

== ENCOUNTER → 2021-08-06 | Outpatient (CLI) | payer OTHER ==
[2021-08-06 15:14] LABS: BASOPHILS # (AUTO) 0.1 10^3/uL (0.0-0.1); BASOPHILS % (AUTO) 1 % (0-10); EOSINOPHILS % (AUTO) 0 % (0-10); HEMATOCRIT 41 % (35-52); HEMOGLOBIN 13.5 g/dL (11.5-16.0); LYMPHOCYTES # (AUTO) 1.9 10^3/uL (1.0-4.0); LYMPHOCYTES % (AUTO) 22 % (12-44); MEAN CORPUSCULAR HEMOGLOBIN 32 pg (25-34); MEAN CORPUSCULAR HGB CONC 33 g/dL (32-36); MEAN CORPUSCULAR VOLUME 97 fL (80-99); MEAN PLATELET VOLUME 8.6 fL (9.0-12.2); MONOCYTES # (AUTO) 0.5 10^3/uL (0.0-1.0); MONOCYTES % (AUTO) 5 % (0-12); NEUTROPHILS # (AUTO) 6.3 10^3/uL (1.8-7.8); NEUTROPHILS % (AUTO) 72 % (42-75); PLATELET COUNT 334 10^3/uL (130-400); WHITE BLOOD COUNT 8.8 10^3/uL (4.3-11.0)
[2021-08-06 15:32] LABS: ALBUMIN 4.3 GM/DL (3.2-4.5); POTASSIUM 4.3 MMOL/L (3.6-5.0)
[2021-08-06 15:33] LABS: CALCIUM 9.3 MG/DL (8.5-10.1)
[2021-08-06 15:35] LABS: TOTAL PROTEIN 6.9 GM/DL (6.4-8.2)
[2021-08-06 15:36] LABS: BILIRUBIN,TOTAL 0.8 MG/DL (0.1-1.0)
[2021-08-06 15:38] LABS: CREATININE SERUM 0.95 MG/DL (0.60-1.30)
== END ==
LOC: LAB 14:56
PROVIDERS: ATTEND Nurse Practitioner Family
DX: F41.1 Generalized anxiety disorder (principal); E55.9 Vitamin D deficiency, unspecified
CPT/HCPCS: 36415; 80053; 82306; 84443; 85025

== ENCOUNTER → 2021-09-26 | Outpatient (CLI) | payer OTHER ==
--- NOTE | 2021-09-26 08:49 | Diagnostic Imaging Report ---
INDICATION: Bilateral shoulder pain. TIME OF EXAM: 8:13 AM 3 views of each shoulder were obtained. Glenohumeral and acromioclavicular alignment are normal bilaterally. Acromiohumeral space is normal bilaterally. No fracture or dislocation is seen. IMPRESSION: Unremarkable bilateral shoulder radiographs. Dictated by: Dictated on workstation # [id number]
== END ==
LOC: RAD 07:50
PROVIDERS: ATTEND Anesthesiology Pain Medicine
DX: M25.512 Pain in left shoulder (principal); M25.511 Pain in right shoulder

== ENCOUNTER → 2022-07-22 | Outpatient (CLI) | payer OTHER ==
[2022-07-22 16:51] LABS: HEMATOCRIT 41 % (35-52); HEMOGLOBIN 13.2 g/dL (11.5-16.0); MEAN CORPUSCULAR HEMOGLOBIN 31 pg (25-34); MEAN CORPUSCULAR HGB CONC 32 g/dL (32-36); MEAN CORPUSCULAR VOLUME 98 fL (80-99); PLATELET COUNT 295 10^3/uL (130-400); WHITE BLOOD COUNT 5.6 10^3/uL (4.3-11.0)
[2022-07-22 17:03] LABS: ALBUMIN 4.4 GM/DL (3.2-4.5); POTASSIUM 3.7 MMOL/L (3.6-5.0)
[2022-07-22 17:04] LABS: CALCIUM 8.7 MG/DL (8.5-10.1)
[2022-07-22 17:06] LABS: TOTAL PROTEIN 7.1 GM/DL (6.4-8.2)
[2022-07-22 17:07] LABS: BILIRUBIN,TOTAL 0.5 MG/DL (0.1-1.0)
[2022-07-22 17:09] LABS: CREATININE SERUM 0.98 MG/DL (0.60-1.30)
== END ==
LOC: LAB 16:22
PROVIDERS: ATTEND Family Medicine
DX: E55.9 Vitamin D deficiency, unspecified (principal); A93.8 Other specified arthropod-borne viral fevers; R11.0 Nausea
CPT/HCPCS: 36415; 80053; 82306; 85027; 86003; 86618; 86666; 86668; 86757

== ENCOUNTER 2022-10-10 08:34 | Emergency (ER) | payer OTHER ==
[~2022-10-10] VITALS: Ht 162 cm; Wt 70.0 kg
--- NOTE | 2022-10-10 08:44 | ED Back Pain ---
General Chief Complaint: Back Problems Stated Complaint: LOWER BACK PAIN | Source of Information: Patient Exam Limitations: No Limitations History of Present Illness Date Seen by Provider: Oct 10, 2022 Time Seen by Provider: 08:44 Initial Comments Patient is a 42-year-old female who presents to the emergency department with a chief complaint of left-sided low back pain. She points to the area of the posterior superior iliac crest, wrapping around her left hip and down into her left groin. Onset of pain was yesterday. She took 2 ibuprofen and 2 Tylenol last night at around 10:00p without any relief of symptoms. She states one of the physical therapist "adjusted" her yesterday and the pain seemed to get worse . She states that she has a remote history of kidney stone. She denies any dysuria, hematuria urgency or frequency. Movement and lifting her left leg make her pain worse. Nothing really makes the pain any better. She works in OP therapy as a tech. She has had prior cervical spine surgery. remote MRI's of the spine 10y ago. Location: Lumbar Spine Timing/Duration: 1-2 Days Severity: Moderate ("7") Pain/Injury Location: Back Radiation: Other (left groin) Method of Injury: Unknown Modifying Factors: Improves With Immobilization; Worse With Movement Associated Symptoms: No numbness in legs/feet, No tingling in legs/feet, No sensory/motor loss; lower back pain; No loss of bladder control, No loss of bowel control Allergies and Home Medications Allergies Coded Allergies: morphine (Verified Allergy, Unknown, 10/10/22) Patient Home Medication List Home Medication List Reviewed: Yes Duloxetine HCl (Duloxetine HCl) 30 Mg Capsule.dr (Reported) Entered as Reported by: JOVITA RODRÍGUEZ on 05/15/16 1155 Metaxalone (Skelaxin) 800 Mg Tablet, 800 MG PO Q8H Prescribed by: NOMI YORK on 05/15/16 1355 Methocarbamol (Methocarbamol) 750 Mg Tablet, 1,500 MG PO Q8H Prescribed by: YESENIA MONTILLA on 10/10/22 0948 Naproxen (Naprosyn) 500 Mg Tablet, 500 MG PO BID Prescribed by: YESENIA MONTILLA on 10/10/22 0948 Tramadol HCl (Tramadol HCl) 50 Mg Tablet, 50 MG PO Q8H Prescribed by: NOMI YORK on 05/15/16 9395 Review of Systems Constitutional: see HPI Respiratory: no symptoms reported Cardiovascular: no symptoms reported Gastrointestinal: vomiting (last night due to pain) Genitourinary: no symptoms reported Musculoskeletal: back pain (and left groin pain) Skin: no symptoms reported Psychiatric/Neurological: No Symptoms Reported All Other Systems Reviewed Negative Unless Noted: Yes Physical Exam Vital Signs Vital Signs - First Documented 10/10/22 08:40 Temp 36.9 Pulse 88 Resp 18 B/P (MAP) 135/99 (111) Pulse Ox 97 Capillary Refill : Height, Weight, BMI Height: 5'5.00" Weight: 145lbs. 0.0oz. 65.854746wa; 24.1 BMI Method:Stated General Appearance: No Apparent Distress, WD/WN HEENT: PERRL/EOMI Cardiovascular: Regular Rate, Rhythm Respiratory: Lungs Clear, Normal Breath Sounds, No Accessory Muscle Use, No Respiratory Distress Gastrointestinal: Normal Bowel Sounds, Soft, Tenderness (mild suprapubic tender ness) Back: Other (mild tenderness over the left ASIS and PSIS; no overlying rashes. No swelling or palpable muscle spasm in the right lumbar region. No CVA tenderness; No percussive tenderness to the spine; negative straight leg raise. No sensory or motor loss in the left leg) Extremity: Normal Capillary Refill, Normal Inspection, Normal Range of Motion, No Pedal Edema Neurologic/Psychiatric: Alert, Oriented x3, No Motor/Sensory Deficits, Normal Mood/Affect, heel packer II-XII Norm as Tested Skin: Normal Color, Warm/Dry Progress/Results/Core Measures Results/Orders Lab Results Laboratory Tests Test 10/10/22 09:00 10/10/22 09:04 Range/Units Urine Color YELLOW Urine Clarity SL CLOUDY Urine pH 5.5 5-9 Urine Specific Spencer >=1.030 1.016-1.022 Urine Protein NEGATIVE NEGATIVE Urine Glucose (UA) NEGATIVE NEGATIVE Urine Ketones NEGATIVE NEGATIVE Urine Nitrite NEGATIVE NEGATIVE Urine Bilirubin NEGATIVE NEGATIVE Urine Urobilinogen 0.2 < = 1.0 MG/DL Urine Leukocyte Esterase NEGATIVE NEGATIVE Urine RBC (Auto) NEGATIVE NEGATIVE Urine RBC NONE /HPF Urine WBC RARE /HPF Urine Squamous Epithelial Cells 10-25 H /HPF Urine Crystals PRESENT H /LPF Urine Amorphous Sediment FEW STEPHENIE URATES H /LPF Urine Bacteria NEGATIVE /HPF Urine Casts NONE /LPF Urine Mucus SMALL H /LPF Urine Culture Indicated NO Sodium Level 140 135-145 MMOL/L Potassium Level 3.4 L 3.6-5.0 MMOL/L Chloride Level 109 H 98-107 MMOL/L Carbon Dioxide Level 23 21-32 MMOL/L Anion Gap 8 5-14 MMOL/L Blood Urea Nitrogen 9 7-18 MG/DL Creatinine 0.88 0.60-1.30 MG/DL Estimat Glomerular Filtration Rate 84 BUN/Creatinine Ratio 10 Glucose Level 65 L 70-105 MG/DL Calcium Level 9.3 8.5-10.1 MG/DL My Orders Orders - YESENIA MONTILLA MD Ed Iv/Invasive Line Start (10/10/22 08:50) Ua Culture If Indicated (10/10/22 08:50) Basic Metabolic Panel (10/10/22 08:50) Ketorolac Injection (Toradol Injection) (10/10/22 09:00) Orphenadrine Inj (Ed Only) (Norflex Inje (10/10/22 09:00) Urine Bedside (10/10/22 08:52) Medications Given in ED Current Medications Medications Dose Ordered Sig/Tanner Route Start Time Stop Time Status Last Admin Dose Admin Ketorolac Tromethamine 15 mg ONCE ONCE IVP 10/10/22 09:00 10/10/22 09:01 DC 10/10/22 09:17 15 MG Orphenadrine Citrate 60 mg ONCE ONCE IV 10/10/22 09:00 10/10/22 09:01 DC 10/10/22 09:17 60 MG Vital Signs/I&O 10/10/22 08:40 Temp 36.9 Pulse 88 Resp 18 B/P (MAP) 135/99 (111) Pulse Ox 97 Progress Progress Note : Time: 09:42 Progress Note Patient seen and evaluated, evaluation today includes physical exam, basic metabolic panel, urine test and urinalysis. Pertinent physical exam findings well-developed well-nourished female in no acute distress. She has spasmodic type pain to the left lateral hip and groin. This is minimally tender to palpation. No palpable masses in the groin, intact pulses 2+ femoral. No swelling to the posterior superior iliac crest or lumbar spine is noted. No overlying rashes/erythema. Negative straight leg raise. Intact motor and sensory function to the bilateral lower extremities. No saddle anesthesia. Differential diagnosis based on history and physical exam, renal colic/kidney stone, muscle spasm, early radiculopathy Labs independently reviewed and interpreted by me, her urinalysis is negative for blood/evidence of infection. This makes renal colic lower on the list of differential diagnosis. Her basic metabolic panel shows a slightly decreased potassium level at 3.2. Otherwise normal renal function. She was treated in the emergency department with IV Toradol 15 mg and 60 mg of Norflex. She achieved some partial relief of symptoms. She is declining any further medications in the emergency department. We will send her home on naproxen twice daily for 5 days as well as methocarbamol. Recommended [id number]-gyw-pwgenys lidocaine patches to help alleviate her symptoms as well. Encouraged patient to follow-up with Dr. Alvarado, her primary care provider. Return precautions given in both verbal and written format. The patient verbalized understanding is comfortable with plan of care. All questions are sought and answered, patient is stable for discharge. Departure Impression Primary Impression: Left low back pain Disposition: HOME, SELF-CARE Condition: Improved Departure-Patient Inst. Decision time for Depature: 09:45 Referrals: DIANA ALVARADO MD (PCP/Family) Primary Care Physician Patient Instructions: Hip Pain ED Add. Discharge Instructions: Use over the counter Lidocaine patches (please follow packaging instructions) to the sore area of your left hip and low back. Naproxen 500mg - take with food twice a day for 5 days for pain. Methocarbamol (muscle relaxer) every 8 hours as needed for spasm. This medication may make you sleepy, you should not drive while taking this. If you develop any worsening symptoms, numbness in the leg, wekaness in leg, loss of bowel or bladder control, please return to the Emergency Department for re-evaluation. PLease call Dr Alvarado's office for a follow up appointment. Scripts Methocarbamol (Methocarbamol) 750 Mg Tablet 1500 MG PO Q8H for Back Pain, #30 TAB Prov: YESENIA MONTILLA MD 10/10/22 Naproxen (Naprosyn) 500 Mg Tablet 500 MG PO BID, #10 TAB 0 Refills Prov: YESENIA MONTILLA MD 10/10/22 Work/School Note: Work Release Form Date Seen in the Emergency Department: Oct 10, 2022 Return to Work: Oct 13, 2022 Copy Copies To 1: DIANA ALVARADO MD, KATHRYN M MD Oct 10, 2022 08:44
[2022-10-10] MEDS ORDERED: ORPHENADRINE 60 MG/2 ML (NORFLEX) AMP (ED ONLY) IV ONE (09:00)
[2022-10-10] MEDS ORDERED: KETOROLAC 15 MG/ML VIAL IVP ONE (09:00)
[2022-10-10 09:13] LABS: BILIRUBIN,URINE NEGATIVE (NEGATIVE); CLARITY,URINE SL CLOUDY; COLOR,URINE YELLOW; GLUCOSE, URINE (UA) NEGATIVE (NEGATIVE); KETONES,URINE NEGATIVE (NEGATIVE); LEUKOCYTE ESTERASE ,URINE NEGATIVE (NEGATIVE); NITRITE,URINE NEGATIVE (NEGATIVE); PH,URINE 5.5 (5-9); PROTEIN,URINE NEGATIVE (NEGATIVE)
[2022-10-10 09:20] LABS: AMORPHOUS SEDIMENT,UR FEW AMOR URATES /LPF; BACTERIA,URINE NEGATIVE /HPF; WBC,URINE RARE /HPF
[2022-10-10 09:24] LABS: POTASSIUM 3.4 MMOL/L (3.6-5.0)
[2022-10-10 09:25] LABS: CALCIUM 9.3 MG/DL (8.5-10.1)
[2022-10-10 09:29] LABS: CREATININE SERUM 0.88 MG/DL (0.60-1.30)
[2022-10-10] MEDS ORDERED: METH-732 PO (09:48)
[2022-10-10] MEDS ORDERED: NAPR-1071 PO (09:48)
[2022-10-10 09:54] VITALS: BP 128/89
== END 2022-10-10 10:00 | disposition home or self-care (01) ==
LOC: EDUNIT# 08:34 → ER 08:35
DX: M54.50 Low back pain, unspecified (principal); M25.552 Pain in left hip; R10.32 Left lower quadrant pain
CPT/HCPCS: 36415; 80048; 81000; 84703

== ENCOUNTER 2022-10-17 08:45 | Outpatient (RCR) | payer OTHER ==
[~2022-10-17 08:45] MED LIST changes: +METH-732 PO; +NAPR-1071 PO
== END 2022-10-24 | disposition home or self-care (01) ==
DX: M54.50 Low back pain, unspecified (principal)

== ENCOUNTER 2022-11-17 12:45 | Outpatient (RCR) | payer OTHER | END 2022-11-24 | disposition home or self-care (01) | DX: M54.50 Low back pain, unspecified (principal) ==